=== PATIENT | female | born 1960 | race Caucasian/White ===

== ENCOUNTER 2016-09-05 11:03 | Inpatient (IN) | payer OTHER ==
[~2016-09-05] VITALS: Ht 170.2 cm; Wt 54.0 kg
[~2016-09-05 11:03] MED LIST: ASPIRIN81 M2 PO; AUGMENTIN875 MG PO; BUSPAR10 MG PO; BUSPIRONE HCL10 MG PO; COMBIVENT RESPIM4 GM IH; DICLOFENAC SODI75 MG PO; DUONEB 2.5-0.5 M3 ML AEROSOL; DUONEB 2.5-0.5 M3 ML IH; EQUATE1 EACH MC; FLOVENT 11120 INHALA IH; INDERAL LA60 MG PO; INDERAL10 MG PO; INDERAL20 MG PO; KEFLEX500 MG PO; LAMICTAL100 MG PO; LAMICTAL150 M1 PO; LAMOTRIGINE150 MG PO; LAMOTRIGINE200 MG PO; LOVASTATIN10 MG PO; LaMICtal PO; MECLIZINE HCL25 MG PO; MUCINEX600 MG PO; NICOTINE PATCH1 EAC2 TD; OLANZAPINE10 MG PO; OLANZAPINE20 MG PO; PANTOPRAZOLE SO40 MG PO; PREDNISONE10 MG PO; PRILOSEC20 MG PO; PROAIR HFA8.5 GM IH; PROTONIX40 MG PO; STELAZINE; STELAZINE5 MG PO; TRAZODONE HCL50 MG PO; TRIFLUOPERAZINE10 MG PO; VOLTAREN75 MG PO; ZYPREXA20 MG PO
[2016-09-05 11:52] LABS: EOSINOPHIL (%) 2.1 % (0-5); EOSINOPHIL COUNT 0.2 K/uL (0-0.3); HEMATOCRIT 38.1 % (36.0-46.0); IMMATURE GRANULOCYTE (%) 0.4 % (0.0-0.7); INSTRUMENT ABS NEUTROPHIL CT 5.6 K/uL; LYMPHOCYTE COUNT 1.8 K/uL (1.0-2.8); MCH 30.9 PG (29.0-34.0); MCHC 33.6 G/DL (30.0-36.0); MEAN PLAT.VOLUME 9.5 uM^3 (9.5-12.4); MONOCYTE COUNT 0.9 K/uL (0-0.8); NEUTROPHIL COUNT 5.6 K/uL (1.8-6.4); PLATELET COUNT 289 K/uL (156-360); RBC DIS.WIDTH-CV 13.6 % (11.8-14.6); RBC DIS.WIDTH-SD 45.8 % (39-53); RED BLOOD COUNT 4.14 M/uL (3.80-5.20); WHITE BLOOD COUNT 8.5 K/uL (4.1-10.2)
[2016-09-05 12:00] LABS: CHLORIDE 106 mEq/L (99-109); POTASSIUM 3.8 mEq/L (3.7-5.4); SODIUM 144 mEq/L (136-147)
[2016-09-05 12:02] LABS: GLUCOSE 95 mg/dL (70-99)
[2016-09-05 12:04] LABS: ANION GAP 12 MEQ/L (2-14)
[2016-09-05 12:05] LABS: SERUM ETHYL ALCOHOL < 10 mg/dL
[2016-09-05 12:06] LABS: GFR ESTIMATE (CALCULATED) > 59 mL/min/
[2016-09-05 12:07] LABS: UREA NITROGEN (BUN) 10 mg/dL (9-23)
[2016-09-05] MEDS ORDERED: FLUPHENAZINE HCL5 MG PO (13:53)
[2016-09-05] MEDS ORDERED: DESYREL100 MG PO (13:54)
[2016-09-05 14:03] VITALS: BP 139/60
[2016-09-05 14:04] VITALS: BP 139/60
[2016-09-05] MEDS ORDERED: LO-DOSE ASPIRIN81 M2 PO (14:06)
[2016-09-05] MEDS ORDERED: COMBIVENT RESPIM4 GM IH (14:09)
[2016-09-05] MEDS ORDERED: LAMICTAL25 MG PO (14:11)
[2016-09-05 16:10] VITALS: BP 104/59
[2016-09-06 07:58] VITALS: BP 101/50
[2016-09-06 15:24] VITALS: BP 103/65
[2016-09-07 08:15] VITALS: BP 106/58
[2016-09-07 15:17] VITALS: BP 115/65
[2016-09-08 09:29] VITALS: BP 98/64
[2016-09-08 15:52] VITALS: BP 111/59
[2016-09-09 07:58] VITALS: BP 112/71
[2016-09-09 15:22] VITALS: BP 115/59
[2016-09-10 08:01] VITALS: BP 110/53
[2016-09-10 15:32] VITALS: BP 92/62
[2016-09-11 07:38] VITALS: BP 113/71
[2016-09-11 15:59] VITALS: BP 114/73
[2016-09-12 07:51] VITALS: BP 112/54
[2016-09-12 15:37] VITALS: BP 134/63
[2016-09-13 07:24] VITALS: BP 106/55
[2016-09-13 15:30] VITALS: BP 113/56
[2016-09-14 07:46] VITALS: BP 92/50
[2016-09-14 15:51] VITALS: BP 123/57
[2016-09-15 07:52] VITALS: BP 103/59
[2016-09-15 15:36] VITALS: BP 106/69
[2016-09-16 07:41] VITALS: BP 106/66
[2016-09-16 15:23] VITALS: BP 97/58
[2016-09-17 07:43] VITALS: BP 90/50
[2016-09-17 11:49] VITALS: BP 100/53
[2016-09-17 15:28] VITALS: BP 89/53
[2016-09-18 07:48] VITALS: BP 106/51
[2016-09-18 15:21] VITALS: BP 113/53
[2016-09-19 07:57] VITALS: BP 108/61
[2016-09-19 15:52] VITALS: BP 96/53
[2016-09-20 07:54] VITALS: BP 122/55
[2016-09-20 14:53] VITALS: BP 99/50
[2016-09-21 07:24] VITALS: BP 82/43
[2016-09-21 14:46] VITALS: BP 117/60
[2016-09-22 12:42] VITALS: BP 94/51
[2016-09-22 16:10] VITALS: BP 86/54
[2016-09-23 07:41] VITALS: BP 101/51
[2016-09-23 14:57] VITALS: BP 102/61
[2016-09-24 07:44] VITALS: BP 98/53
[2016-09-24 15:33] VITALS: BP 94/50
[2016-09-24 18:46] VITALS: BP 92/53
[2016-09-25 07:50] VITALS: BP 98/53
[2016-09-25 15:52] VITALS: BP 97/57
[2016-09-26 09:13] VITALS: BP 90/54
[2016-09-26] MEDS ORDERED: BUSPAR10 MG PO (12:17)
[2016-09-26] MEDS ORDERED: DESYREL 150 MG150 MG PO (12:17)
[2016-09-26] MEDS ORDERED: OLANZAPINE10 MG PO (12:17)
[2016-09-26] MEDS ORDERED: LOVASTATIN10 MG PO (12:17)
[2016-09-26] MEDS ORDERED: STELAZINE5 MG PO (12:17)
[2016-09-26] MEDS ORDERED: LAMICTAL25 MG PO ×2 (12:17→12:36)
[2016-09-26] MEDS ORDERED: COMBIVENT RESPIM4 GM IH (12:17)
[2016-09-26] MEDS ORDERED: PROAIR HFA8.5 GM IH (12:17)
[2016-09-26] MEDS ORDERED: PRILOSEC20 MG PO (12:17)
== END 2016-09-26 14:00 | disposition home or self-care (01) | DRG 885 ==
LOC: EME 11:03 → EDOF 12:54 → 1WEST 12:54 → EDOF 13:22 → 1WEST 14:04
PROVIDERS: Emergency Medicine
DX: F25.0 Schizoaffective disorder, bipolar type (principal); F41.9 Anxiety disorder, unspecified; J44.9 Chronic obstructive pulmonary disease, unspecified; K21.9 Gastro-esophageal reflux disease without esophagitis; E78.5 Hyperlipidemia, unspecified; Z91.5 Personal history of self-harm
CPT/HCPCS: 80048; 81003; 85025; 90839; 97150 GO; 97166 GO; 99202; 99281; 99284; G0480

== ENCOUNTER 2016-09-27 19:37 | Inpatient (IN) | payer OTHER ==
[~2016-09-27] VITALS: Ht 170.2 cm; Wt 55.0 kg
[~2016-09-27 19:37] MED LIST changes: +DESYREL 150 MG150 MG PO; +DESYREL100 MG PO; +FLUPHENAZINE HCL5 MG PO; +LAMICTAL25 MG PO; +LO-DOSE ASPIRIN81 M2 PO
[2016-09-27 20:31] LABS: HEMATOCRIT 38.3 % (36.0-46.0); MCH 31.2 PG (29.0-34.0); MCHC 33.7 G/DL (30.0-36.0); MCV 92.7 FL (83-99); MEAN PLAT.VOLUME 8.8 uM^3 (9.5-12.4); PLATELET COUNT 278 K/uL (156-360); RBC DIS.WIDTH-CV 13.6 % (11.8-14.6); RBC DIS.WIDTH-SD 46.1 % (39-53); RED BLOOD COUNT 4.13 M/uL (3.80-5.20); WHITE BLOOD COUNT 9.4 K/uL (4.1-10.2)
[2016-09-27 20:44] LABS: CHLORIDE 105 mEq/L (99-109); POTASSIUM 3.9 mEq/L (3.7-5.4); SODIUM 140 mEq/L (136-147)
[2016-09-27 20:46] LABS: GLUCOSE 97 mg/dL (70-99)
[2016-09-27 20:47] LABS: ANION GAP 11 MEQ/L (2-14)
[2016-09-27 20:49] LABS: SERUM ETHYL ALCOHOL < 10 mg/dL
[2016-09-27 20:50] LABS: GFR ESTIMATE (CALCULATED) > 59 mL/min/; UREA NITROGEN (BUN) 13 mg/dL (9-23)
[2016-09-27 22:33] LABS: COCAINE NEGATIVE (150 ng/mL); METHAMPHETAMINE NEGATIVE (500 ng/mL); OPIATES (MORPHINE) NEGATIVE (100 ng/mL); PHENCYCLIDINE NEGATIVE (25 ng/mL); THC CANNABINOIDS NEGATIVE (50 ng/mL)
[2016-09-27 22:34] LABS: AMPHETAMINE NEGATIVE (500 ng/mL); BARBITURATES NEGATIVE (200 ng/mL); BENZODIAZEPINES NEGATIVE (150 ng/mL); INTERNAL CONTROLS VALID? YES; METHADONE NEGATIVE (200 ng/mL); OXYCODONE NEGATIVE (100 ng/mL); PROPOXYPHENE NEGATIVE (300 ng/mL); TRICYCLIC ANTIDEPRESSANTS NEGATIVE (300 ng/mL)
[2016-09-28] MEDS ORDERED: LAMICTAL150 M1 PO (08:49)
[2016-09-28] MEDS ORDERED: ZYPREXA20 MG PO (08:50)
[2016-09-28] MEDS ORDERED: BUSPAR10 MG PO (08:51)
[2016-09-28] MEDS ORDERED: STELAZINE PO (08:51)
[2016-09-28 13:06] VITALS: BP 105/52
[2016-09-28 15:57] VITALS: BP 103/49
[2016-09-29 08:34] VITALS: BP 93/49
[2016-09-29 15:47] VITALS: BP 85/49
[2016-09-30 07:57] VITALS: BP 92/52
[2016-09-30 14:40] LABS: ADD MIUA? YES; BILIRUBIN NEGATIVE; BLOOD NEGATIVE; COLOR STRAW ((YELLOW)); GLUCOSE (STRIP) NEGATIVE; KETONES NEGATIVE; LEUKOCYTES LARGE; NITRITE NEGATIVE; PROTEIN (STRIP) NEGATIVE; SPECIFIC GRAVITY 1.005 (1.000-1.030); UROBILINOGEN 0.2 MG/DL (0.2-1.0)
[2016-09-30 14:47] LABS: BACTERIA 1+ /HPF; EPITHELIAL CELLS RARE /HPF; MUCUS TRACE /LPF; UCUL ADDED? YES; WHITE BLOOD CELLS TNTC /HPF (0-5)
[2016-09-30 15:34] VITALS: BP 80/41
[2016-10-01 08:02] VITALS: BP 107/59
[2016-10-01 15:42] VITALS: BP 97/51
[2016-10-02 07:55] VITALS: BP 86/40
[2016-10-02 15:30] VITALS: BP 90/50
[2016-10-03 08:02] VITALS: BP 91/59
[2016-10-03 15:50] VITALS: BP 84/51
[2016-10-03 19:25] VITALS: BP 79/45
[2016-10-04 08:03] VITALS: BP 89/52
[2016-10-04 15:18] VITALS: BP 88/52
[2016-10-05 07:41] VITALS: BP 88/53
[2016-10-05] MEDS ORDERED: ZYPREXA20 MG PO (10:58)
[2016-10-05] MEDS ORDERED: STELAZINE PO (10:58)
[2016-10-05] MEDS ORDERED: DESYREL 150 MG150 MG PO (10:58)
[2016-10-05] MEDS ORDERED: LAMICTAL150 M1 PO (10:58)
[2016-10-05] MEDS ORDERED: BUSPAR10 MG PO (10:58)
[2016-10-05 10:59] VITALS: BP 88/51
== END 2016-10-05 14:06 | disposition home or self-care (01) | DRG 885 ==
LOC: EME 19:37 → 1WEST 09-28 13:03 → EME 09-28 13:03 → 1WEST 10-05 14:06
PROVIDERS: Nurse Practitioner Family
DX: F25.0 Schizoaffective disorder, bipolar type (principal); K21.9 Gastro-esophageal reflux disease without esophagitis; E78.5 Hyperlipidemia, unspecified
CPT/HCPCS: 80048; 81003; 85027; 87086; 90839; 97150 GO; 99281; 99285; G0480

== ENCOUNTER 2017-05-03 09:42 | Emergency (ER) | payer OTHER ==
[~2017-05-03] VITALS: Ht 170.2 cm; Wt 73.2 kg
[~2017-05-03 09:42] MED LIST changes: +STELAZINE PO
[2017-05-03 10:23] LABS: EOSINOPHIL (%) 0.3 % (0-5); HEMATOCRIT 41.4 % (36.0-46.0); IMMATURE GRANULOCYTE (%) 0.3 % (0.0-0.7); MCHC 33.8 G/DL (30.0-36.0); MCV 94.7 FL (83-99); MEAN PLAT.VOLUME 8.9 uM^3 (9.5-12.4); MONOCYTE (%) 11.4 % (3-12); MONOCYTE COUNT 1.3 K/uL (0-0.8); NEUTROPHIL (%) 78.9 % (45-76); PLATELET COUNT 229 K/uL (156-360); RBC DIS.WIDTH-CV 13.3 % (11.8-14.6); RBC DIS.WIDTH-SD 46.6 % (39-53); RED BLOOD COUNT 4.37 M/uL (3.80-5.20); WHITE BLOOD COUNT 11.3 K/uL (4.1-10.2)
[2017-05-03 10:32] LABS: CHLORIDE 104 mEq/L (99-109); POTASSIUM 3.4 mEq/L (3.7-5.4); SODIUM 137 mEq/L (136-147)
[2017-05-03 10:34] LABS: GLUCOSE 100 mg/dL (70-99)
[2017-05-03 10:35] LABS: ANION GAP 10 MEQ/L (2-14)
[2017-05-03 10:38] LABS: GFR ESTIMATE (CALCULATED) > 59 mL/min/
[2017-05-03 10:39] LABS: UREA NITROGEN (BUN) 8 mg/dL (9-23)
[2017-05-03] MEDS ORDERED: ANTIVERT25 MG PO (12:04)
[2017-05-03 12:14] VITALS: BP 91/62
== END 2017-05-03 12:14 | disposition home or self-care (01) ==
LOC: EME 09:42
PROVIDERS: Emergency Medicine
DX: R42 Dizziness and giddiness (principal); R51 Headache; Z79.82 Long term (current) use of aspirin; F17.200 Nicotine dependence, unspecified, uncomplicated
CPT/HCPCS: 70450; 80048; 85025; 93005; 99281; 99283

== ENCOUNTER 2017-06-07 18:00 | Emergency (ER) | payer OTHER ==
[~2017-06-07] VITALS: Ht 170.2 cm; Wt 58.4 kg
[~2017-06-07 18:00] MED LIST changes: +ANTIVERT25 MG PO
[2017-06-07] MEDS ORDERED: MECLIZINE HCL25 MG PO (21:05)
[2017-06-07 21:19] VITALS: BP 110/78
== END 2017-06-07 21:20 | disposition home or self-care (01) ==
LOC: EME 18:00
DX: H81.399 Other peripheral vertigo, unspecified ear (principal); F32.9 Major depressive disorder, single episode, unspecified; J44.9 Chronic obstructive pulmonary disease, unspecified; K21.9 Gastro-esophageal reflux disease without esophagitis; F17.200 Nicotine dependence, unspecified, uncomplicated; Z79.82 Long term (current) use of aspirin; Z88.8 Allergy status to other drugs, medicaments and biological substances
CPT/HCPCS: 93005; 99281; 99285; J7030

== ENCOUNTER 2017-07-02 01:49 | Emergency (ER) | payer OTHER ==
[~2017-07-02] VITALS: Ht 170.2 cm; Wt 56.7 kg
[2017-07-02 03:08] LABS: BASOPHIL (%) 0.6 % (0-1); EOSINOPHIL (%) 3.5 % (0-5); EOSINOPHIL COUNT 0.2 K/uL (0-0.3); HEMATOCRIT 37.8 % (36.0-46.0); HEMOGLOBIN 12.8 G/DL (11.9-15.5); IMMATURE GRANULOCYTE (%) 0.3 % (0.0-0.7); LYMPHOCYTE (%) 42.8 % (15-42); MCH 31.7 PG (29.0-34.0); MCHC 33.9 G/DL (30.0-36.0); MCV 93.6 FL (83-99); MONOCYTE (%) 10.3 % (3-12); MONOCYTE COUNT 0.7 K/uL (0-0.8); NEUTROPHIL (%) 42.5 % (45-76); NEUTROPHIL COUNT 2.9 K/uL (1.8-6.4); PLATELET COUNT 268 K/uL (156-360); RBC DIS.WIDTH-CV 13.9 % (11.8-14.6); RBC DIS.WIDTH-SD 47.8 % (39-53); RED BLOOD COUNT 4.04 M/uL (3.80-5.20); WHITE BLOOD COUNT 6.9 K/uL (4.1-10.2)
[2017-07-02 03:18] LABS: ALBUMIN 3.9 g/dL (3.2-4.8); CHLORIDE 110 mEq/L (99-109); POTASSIUM 3.9 mEq/L (3.7-5.4); SODIUM 144 mEq/L (136-147)
[2017-07-02 03:21] LABS: GLUCOSE 82 mg/dL (70-99); TOTAL PROTEIN 6.4 g/dL (6.4-8.3)
[2017-07-02 03:22] LABS: TOTAL BILIRUBIN 0.3 mg/dL (0.0-1.0)
[2017-07-02 03:24] LABS: ALKALINE PHOSPHATASE 55 IU/L (3-129); CREATININE 0.9 mg/dL (0.6-1.3); GFR ESTIMATE (CALCULATED) > 59 mL/min/
[2017-07-02 03:25] LABS: UREA NITROGEN (BUN) 9 mg/dL (9-23)
[2017-07-02 03:26] LABS: AST (GOT) 13 IU/L (2-34); DIRECT BILIRUBIN 0.1 mg/dL (0.0-0.3)
[2017-07-02 03:27] LABS: ALT (GPT) 10 IU/L (3-49)
[2017-07-02 03:28] LABS: LIPASE 41 U/L (1.0-51.0)
[2017-07-02 04:18] LABS: APPEARANCE CLOUDY ((CLEAR)); BILIRUBIN NEGATIVE; BLOOD NEGATIVE; COLOR YELLOW ((YELLOW)); GLUCOSE (STRIP) NEGATIVE; KETONES NEGATIVE; LEUKOCYTES MODERATE; NITRITE NEGATIVE; PROTEIN (STRIP) NEGATIVE; SPECIFIC GRAVITY 1.023 (1.000-1.030)
[2017-07-02 04:34] LABS: BACTERIA 1+ /HPF; EPITHELIAL CELLS 1+ /HPF; MUCUS 2+ /LPF; RED BLOOD CELLS NONE SEEN /HPF (0-5); WHITE BLOOD CELLS 30-40 /HPF (0-5)
[2017-07-02] MEDS ORDERED: KEFLEX500 MG PO (04:45)
[2017-07-02] MEDS ORDERED: NAPROSYN500 MG PO (04:46)
[2017-07-02 04:59] VITALS: BP 109/53
== END 2017-07-02 05:10 | disposition home or self-care (01) ==
LOC: EME 01:49
PROVIDERS: Emergency Medicine
DX: N12 Tubulo-interstitial nephritis, not specified as acute or chronic (principal); R07.81 Pleurodynia; F25.9 Schizoaffective disorder, unspecified; F17.200 Nicotine dependence, unspecified, uncomplicated
CPT/HCPCS: 71046; 80048; 80076; 81003; 83690; 85025; 99281; 99283

== ENCOUNTER 2017-07-16 18:57 | Emergency (ER) | payer OTHER ==
[~2017-07-16] VITALS: Ht 170.2 cm; Wt 59.1 kg
[~2017-07-16 18:57] MED LIST changes: +NAPROSYN500 MG PO
[2017-07-16 19:43] LABS: HEMATOCRIT 41.7 % (36.0-46.0); MCH 31.8 PG (29.0-34.0); MCHC 33.6 G/DL (30.0-36.0); MCV 94.8 FL (83-99); PLATELET COUNT 335 K/uL (156-360); RBC DIS.WIDTH-SD 48.8 % (39-53); WHITE BLOOD COUNT 7.1 K/uL (4.1-10.2)
[2017-07-16 19:53] LABS: ALBUMIN 4.2 g/dL (3.2-4.8); CHLORIDE 106 mEq/L (99-109); POTASSIUM 3.6 mEq/L (3.7-5.4); SODIUM 142 mEq/L (136-147)
[2017-07-16 19:56] LABS: GLUCOSE 65 mg/dL (70-99); TOTAL PROTEIN 7.2 g/dL (6.4-8.3)
[2017-07-16 19:58] LABS: TOTAL BILIRUBIN 0.3 mg/dL (0.0-1.0)
[2017-07-16 19:59] LABS: ALKALINE PHOSPHATASE 61 IU/L (3-129); CREATININE 0.8 mg/dL (0.6-1.3); GFR ESTIMATE (CALCULATED) > 59 mL/min/
[2017-07-16 20:00] LABS: UREA NITROGEN (BUN) 8 mg/dL (9-23)
[2017-07-16 20:01] LABS: AST (GOT) 13 IU/L (2-34)
[2017-07-16 20:02] LABS: ALT (GPT) 11 IU/L (3-49)
[2017-07-16 23:32] LABS: APPEARANCE SL.HAZY ((CLEAR)); BILIRUBIN NEGATIVE; BLOOD NEGATIVE; COLOR YELLOW ((YELLOW)); GLUCOSE (STRIP) NEGATIVE; KETONES NEGATIVE; LEUKOCYTES LARGE; NITRITE NEGATIVE; PROTEIN (STRIP) NEGATIVE; SPECIFIC GRAVITY 1.011 (1.000-1.030); UROBILINOGEN 0.2 MG/DL (0.2-1.0)
[2017-07-16 23:35] LABS: BACTERIA RARE /HPF; EPITHELIAL CELLS 2+ /HPF; MUCUS TRACE /LPF; RED BLOOD CELLS 0-5 /HPF (0-5); UCUL ADDED? YES; WHITE BLOOD CELLS 15-20 /HPF (0-5)
[2017-07-17] MEDS ORDERED: ULTRAM50 MG PO (00:27)
[2017-07-17 00:45] VITALS: BP 111/53
== END 2017-07-17 00:45 | disposition home or self-care (01) ==
LOC: EXP 18:57 → EME 18:57 → EXP 07-17 00:45
DX: S22.41XA Multiple fractures of ribs, right side, initial encounter for closed fracture (principal); X58.XXXA Exposure to other specified factors, initial encounter; F17.200 Nicotine dependence, unspecified, uncomplicated; J44.9 Chronic obstructive pulmonary disease, unspecified; F32.9 Major depressive disorder, single episode, unspecified; K21.9 Gastro-esophageal reflux disease without esophagitis; Z79.82 Long term (current) use of aspirin
CPT/HCPCS: 71250; 80053; 81003; 85027; 87086; 99281; 99283

== ENCOUNTER 2018-01-20 13:45 | Emergency (ER) | payer OTHER ==
[~2018-01-20] VITALS: Ht 170.2 cm; Wt 57.0 kg
[~2018-01-20 13:45] MED LIST changes: +ULTRAM50 MG PO
[2018-01-20 15:16] LABS: CHLORIDE 107 MEQ/L (99-109); CREATININE 0.8 MG/DL (0.6-1.3); GFR ESTIMATE (CALCULATED) > 59 mL/min/; GLUCOSE 86 mg/dL (70-99); SODIUM 142 MEQ/L (136-147); UREA NITROGEN (BUN) 7 mg/dL (9-23)
[2018-01-20 15:34] VITALS: BP 110/68
== END 2018-01-20 15:36 | disposition home or self-care (01) ==
LOC: EME 13:45
PROVIDERS: Physician Assistant
DX: M62.838 Other muscle spasm (principal); M79.651 Pain in right thigh; M79.652 Pain in left thigh; Z79.82 Long term (current) use of aspirin; Z87.891 Personal history of nicotine dependence
CPT/HCPCS: 80048; 99281; 99284